=== PATIENT | female | born 1980 | race Caucasian/White ===

== ENCOUNTER 2025-03-13 16:01 | Inpatient (IN) | payer OTHER, SELFPAY ==
--- OUTSIDE RECORDS SUMMARY | 2025-03-12 22:16 | XMS_ITS | Encounter Summary ---
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 should not be used for non-medical purposes. *ALTERNATE METHOD CONFIRMATION DONE UPON REQUEST ONLY* Urine Urine specimen obtained by clean catch procedure / Unknown Non-blood Collection / Unknown 03/12/2025 11:09 PM EDT 03/12/2025 11:45 PM EDT us Ray Ramirez MD LAB URINE ORDERABLES Final Result Performing Organization Address City/[facility]/ZIP Co de Phone Number [facility] [address] [place] [address], [place] [phone] * Phencyclidine, urine (03/12/2025 11:09 PM EDT) PCP Scrn, Ur Negative Negative LAB CHEMISTRY METHOD 03/13/2025 12:[address] [facility] Comment: Assay cutoff 25 ng/mL Semi-quantitative assay for screening purposes only. Unconfirmed screening result should not be used for non-medical purposes. *ALTERNATE METHOD CONFIRMATION DONE UPON REQUEST ONLY* Urine Urine specimen obtained by clean catch procedure / Unknown Non-blood Collection / Unknown 03/12/2025 11:09 PM EDT 03/12/2025 11:45 PM EDT Ray Ramirez MD LAB URINE ORDERABLES Final Result Performing Organization Address [facility] Co de Phone Number [facility] [address] [place] [address], * Buprenorphine screen, urine (03/12/2025 11:09 PM EDT) Buprenorphine Screen Urine Negative Negative LAB CHEMISTRY METHOD 03/13/2025 12:[address] [facility] Urine Urine specimen obtained by clean catch procedure / Unknown Non-blood Collection / Unknown 03/12/2025 11:09 PM EDT 03/12/2025 11:[address] [facility] - 03/13/2025 12:38 AM EDT Assay cutoff 5 ng/mL Semi-quantitative assay for screening purposes only. Unconfirmed screening result should not be used for non-medical purposes. *ALTERNATE METHOD CONFIRMATION DONE UPON REQUEST ONLY* Ray Ramirez MD LAB URINE ORDERABLES Final Result Performing Organization Address [facility] de Phone Number [facility] [address] [place] [address], * (ABNORMAL) Drug abuse screen 8a panel, urine (03/12/2025 11:09 PM EDT) Amphetamine Screen, Ur Negative Negative LAB CHEMISTRY METHOD 12:[address] [facility] Comment:Certain OTC medicati ons containing ephedrine, phenylephrine, pseudoephedrine and phenylpropanolamine can cause false positive results. Barbiturate Screen, Ur Negative Negative LAB CHEMISTRY METHOD 12:[address] [facility] Benzodiazepine Screen, Ur Positive(A ) Negative LAB CHEMISTRY METHOD 5 12:[address] [facility] Cocaine Screen, Ur Negative Negative LAB CHEMISTRY METHOD 5 12:38 AM [facility] Opiate Screen, Ur Negative Negative LAB CHEMISTRY METHOD 5 12:38 AM [facility] Cannabinoid (THC) Screen, Ur Positive(A ) Negative LAB CHEMISTRY METHOD 5 12:[address] [facility] Comment:Specimens from patie nts taking pantoprazole sodium (Protonix) have been shown to produce false positive results. Oxycodone Screen, Ur Negative Negative LAB CHEMISTRY METHOD 5 12:38 AM [facility] Fentanyl, Ur Negative Negative LAB CHEMISTRY METHOD 5 12:38 AM [facility] Urine Urine specimen obtained by clean catch procedure / Unknown Non-blood Collection / Unknown 03/12/2025 11:09 PM EDT 03/12/2025 11:[address] [facility] - 03/13/2025 12:38 AM EDT Assay cutoffs: Amphetamines 1000 ng/mL Barbiturates 200 ng/mL Benzodiazepines 200 ng/mL Cocaine 300 ng/mL Fentanyl 1 ng/mL Opiates 300 ng/mL Oxycodone 100 ng/mL THC 50 ng/mL Semi-quantitative assay for screening purposes only. Unconfirmed screening result should not be used for non-medical purposes. *ALTERNATE METHOD CONFIRMATION DONE UPON REQUEST ONLY* us Ray Ramirez MD LAB URINE ORDERABLES Final Result [facility] [address] [place] [address], documented in this encounter Visit Diagnoses Not on filedocumented in this encounter Administered Medications Inactive Administered Medications - up to 3 most recent administrations Medication Order MAR Action Action Date Dose Rate Site sodium chloride 0.9 % bolus 1,000 mL 1,000 mL, intravenous, at 1,000 mL/hr, Administer over 1 Hours, Once, On Tue03/12/25 at 2324, For 1 dose New Bag 03/12/2025 11:45 PM EDT 1,000 mL 1000 mL/hr documented in this encounter Historical Medications * This list may reflect changes made after this encounter. sertraline (ZOLOFT) 100 mg tablet Take 1 tablet (100 mg total) by mouth 2 (two) times a day. 08/15/2009 LORazepam (ATIVAN) 0.5 mg tablet Take 1 tablet (0.5 mg total) by mouth 1 (one) time each day if needed for anxiety. Max Daily Amount: 0.5 mg melatonin 3 mg tablet Take 1 tablet (3 mg total) by mouth at bedtime. 11/01/2024 SUMAtriptan (IMITREX) 25 mg tablet Take 1 tablet (25 mg total) by mouth 1 (one) time if needed for migraine. 01/23/2025 buPROPion XL (WELLBUTRIN XL) 300 mg 24 hr tablet Take 1 tablet (300 mg total) by mouth 1 (one) time each day. 02/16/2023 added in this encounter Active and Recently Administered Medications Times are shown in EDT. Scheduled Medication Order 03/11/2025 03/12/2025 03/13/2025 buPROPion XL (WELLBUTRIN XL) 24 hr tablet 300 mg 300 mg, oral, Daily, First dose on Tue03/13/25 at 1518, Do not crush, chew, or split. 1530 (Not Given - Provider: Stephenie Guadarrama RN - Reason: Other - Comment: pt transferred at this time) melatonin tablet 3 mg 3 mg, oral, Nightly, First dose on Tue03/13/25 at 2100 2100 (Due) sertraline (ZOLOFT) tablet 100 mg 100 mg, oral, Daily, First dose on Tue03/13/25 at 1518 1530 (Not Given - Provider: Stephenie Guadarrama RN - Reason: Other - Comment: pt transferred at this time) sodium chloride 0.9 % bolus 1,000 mL (COMPLETED) 1,000 mL, intravenous, at 1,000 mL/hr, Administer over 1 Hours, Once, On Tue03/12/25 at 2324, For 1 dose 2345 (New Bag - Provider: Lamine Lee, RN) 0039 (Stopped - Provider: Lamine Lee, KARLA) documented in this encounter Orders Medications Ordered That Oliverio ht Not Have Been Administered Count Last Ordered Date First Ordered Date buPROPion XL (WELLBUTRIN XL) 24 hr tablet 300 mg 1 03/13/2025 melatonin tablet 3 mg 1 03/13/2025 sertraline (ZOLOFT) tablet 100 mg 1 025 sodium chloride 0.9 % bolus 1,000 mL 1 02/19 Diet Count Last Ordered Date First Orde red Date ADULT DIET 1 03/13/2025 Nursing Count Last Ordered Date First Orde red Date VITAL SIGNS 1 03/13/2025 Consult Count Last Ordered Date First Orde red Date IP CONSULT TO CURRICULUM WRITER 1 03/13/2025 Precaution Count Last Ordered Date First Orde red Date SUICIDE PRECAUTIONS 1 03/12/2025 Privilege Level Count Last Ordered Date First O rdered Date PATIENT BARK FITTER 1 03/12/2025 documented in this encounter Care Teams Law Clerk Relationship Specialty Start Date End Date Neelam Duran NP [facility] [address] [place] [address] PCP - General Nurse Practitioner 03/12/25 documented as of this encounter
[2025-03-13 16:45] VITALS: BP 138/72; PULSE 101; RESP 18; TEMP 36.6; O2SAT 98
[2025-03-13 17:54] VITALS: BMI 31.5
--- OUTSIDE RECORDS SUMMARY | 2025-03-13 18:02 | XMS_ITS | Encounter Summary ---
Author Organization [facility] Address [address] [place] [address] Phone Care Team Providers Care Bead Machine Operator Name Role Phone Neelam Duran NP Primary Care Provider + Encounter Details Date Type Department Care Team (Late st Contact Info) Description 03/19/2023 Procedure Pass [facility], [facility] [address] [facility] [place] [address] Social History Tobacco Use Types Packs/Day Years Used Date Smoking Tobacco: Former Smokeless Tobacco: Never Alcohol Use Standard Drinks/Week Comments Not Currently 0 (1 standard drink = 0.6 oz pur e alcohol) Education Answer Date Recorded Are you interested in more education? Not on lyly e 10/15/2022 Are you concerned about learning? Not on file 10/15/2022 No 10/15/2022 No 10/15/2022 Digital Access Answer Date Recorded No 11/12/2022 No 11/12/2022 Reliable internet access at home? Not on file 11/12/2022 Device with a working camera? Not on file Comments No Sex and Gender Information Value Date Recorded Sex Assigned at Not on file Legal Sex Female 9:23 PM EDT Gender Identity Not on file Sexual Orientation Not on file documented as of this encounter Plan of Treatment Not on file documented as of this encounter Visit Diagnoses Not on filedocumented in this encounter Care Teams Bead Machine Operator Relationship Specialty Start Date End Date Neelam Duran NP [address] [place] [address] PCP - General Nurse Practitioner 03/09/23 documented as of this encounter Additional Source Comments The information contained in this document represents components of the legal health record. It is not the complete legal health record.[facility]
--- OUTSIDE RECORDS SUMMARY | 2025-03-13 18:02 | XMS_ITS | Encounter Summary ---
Author Organization [facility] Address [address] [facility] [address] [place] [phone] Phone Care Team Providers Care Food Runner Name Role Phone Neelam Duran NP Primary Care Provider + Encounter Details Date Type Department Care Team (Late st Contact Info) Description 03/09/2023 Procedure Pass [facility], [facility] [address] [place] [address] Social History Tobacco Use Types Packs/Day Years Used Date Smoking Tobacco: Former Smokeless Tobacco: Never Education Answer Date Recorded Are you interested [...] on file documented as of this encounter Functional Status * Calculated C-SSRS Risk Score (Lifetime/Recent) Answer Date of Assessment Author No Risk Indicated 03/11/2023 4:51 PM RUBENT Violet Figueredo RN * [place] Suicide Severity Rating Scale (Screener/Recent Self-Report) Question Answer Date of Assessment Author 1. Wish to be (Past 1 Month) No 023 4:51 PM Deidra Ramsey RN 2. Non-Specific Active Suici lc Thoughts (Past 1 Month) No 03/11/2023 4:51 PM EDT Imelda Figueredo RN 6. Suicidal Behavior (Lifetime) No 4:51 PM EDT Deidra Figueredo, RN documented as of this encounter Plan of Treatment Not on file documented as of this encounter Visit Diagnoses Not on filedocumented in this encounter Care Teams Food Runner Relationship Specialty Start Date End Date [facility] [place] [address] PCP - General Nurse Practitioner 03/09/23 documented as of this encounter Additional Source Comments The information contained in this document represents components of the legal health record. It is not the complete legal health record.[facility]
--- OUTSIDE RECORDS SUMMARY | 2025-03-13 18:02 | XMS_ITS | Encounter Summary ---
Author Organization [facility] Address [address] [facility] [address] [place] [phone] Phone Care Team Providers Care Flag Signalman Name Role Phone Neelam Duran NP Primary Care Provider + Encounter Details Date Type Department Care Team (Late st Contact Info) Description 08/05/2023 Procedure Pass [facility] - [facility], [facility] [address] [place] [address] Social History Tobacco Use Types Packs/Day Years [...] with a working camera? Not on file Intimate Partner Violence Answer Date R ecorded Are you denied basic needs s uch as food, clothing, or medical care? No 08/05/2023 In the past 12 months have y ou been in a relationship with a person who hurts, threatens, or tries to control you? No 08/05/2023 Are you denied basic needs s uch as food, clothing, or medical care? No 08/05/2023 In the past 12 months have y ou been in a relationship with a person who hurts, threatens, or tries to control you? No 08/05/2023 Comments No Sex and Gender Information Value Date Recorded Sex Assigned at Not on file Legal Sex Female 9:23 PM EDT Gender Identity Not on file Sexual Orientation Not on file documented as of this encounter Functional Status * Calculated C-SSRS Risk Score (Lifetime/Recent) Answer Date of Assessment Author No Risk Indicated 08/05/2023 8:[address] Sandoval RN * [place] Suicide Severity Rating Scale (Screener/Recent Self-Report) Question Answer Date of Assessment Author 1. Wish to be (Past 1 Month) No 08/05/2023 8:[address] Sandoval am, RN 2. Non-Specific Active Suici lc Thoughts (Past 1 Month) No 08/05/2023 8:[address] Sandoval RN 6. Suicidal Behavior (Lifetime) No 8:[address] Sandoval RN documented as of this encounter Plan of Treatment Not on file documented as of this encounter Visit Diagnoses Not on filedocumented in this encounter Care Teams Flag Signalman Relationship Specialty Start Date End Date Neelam Duran NP [address] [place] [address] PCP - General Nurse Practitioner 03/09/23 documented as of this encounter Additional Source Comments The information contained in this document represents components of the legal health record. It is not the complete legal health record.[facility]
--- OUTSIDE RECORDS SUMMARY | 2025-03-13 18:02 | XMS_ITS | Clinical Summary ---
Author Organization [facility] Address [address] [place] [address] Care Team Providers Care Stylist Apprentice Name Role Phone Jitendra Hernandez MD PhD Primary Care Provid er Allergies Active Allergy Reactions Criticality Noted Date Comments Shellfish 04/13/2023 Medications Medication Sig Dispensed Refills Start Date End Date Status buPROPion (WELLBUTRIN XL) 300 MG 24 hr tablet Take 1 tablet (300 mg total) by mouth every morning. 0 02/16/2023 Active LORazepam (ATIVAN) 0.5 MG tablet TAKE 1 TABLET BY MOUTH EVERY DAY NEEDED. MAY TAKE ADDITIONAL TABLET FOR SEVERE ANXIETY AND / OR BEFORE MEDICAL PROCEDURES 0 05/26/2021 Active sertraline (ZOLOFT) 100 MG tablet Take 1.5 tablets (150 mg total) by mouth. 0 09/16/2009 Active vitamin D3 25 MCG (1000 UT) tablet Take by mouth daily. 0 08/06/2023 Active pantoprazole (PROTONIX) 40 MG tablet 0 08/06/2023 Active Social History Tobacco Use Types Packs/Day Years Used Date Smoking Tobacco: Never Smokeless Tobacco: Never Tobacco Cessation:Counseling Given: Not Answered Alcohol Use Standard Drinks/Week Comments Never 0 (1 standard drink = 0.6 oz pur e alcohol) Sex and Gender Information Value Date Recorded Sex Assigned at Female 04/08/2023 4:12 PM EDT Gender Identity Not on file Sexual Orientation Not on file Job Start Date Occupation Industry Not on file Not on file Not on file Last Filed Vital Signs Vital Sign Reading Time Taken Comments Blood Pressure 125/83 08/29/2023 2:29 PM EDT Pulse 79 08/29/2023 2:29 PM EDT Temperature 36.7 C (98 F) 08/29/2023 2:29 PM EDT Respiratory Rate - - Oxygen Saturation 97% 08/29/2023 2:29 PM EDT Inhaled Oxygen Concentration - - Weight 77 kg (169 lb 12.8 oz) 08/29/2023 2:29 PM EDT Height 157.5 cm (5' 2 ) 08/29/2023 2:29 PM EDT Body Mass Index 31.06 08/29/2023 2:29 PM EDT Plan of Treatment Health Maintenance Due Date Last Done Comments Hepatitis B Vaccines (1 of 3 - 3-dose series) 1979 Hepatitis C Screening 1979 Depression Screening 1991 BMI Counseling 1997 Preventative Health Evaluation 1997 Cervical Cancer Screening (Pap Smear) 2000 DTap / Tdap / Td (1 - Tdap) 06/21/2005 06/20/2005 Colon Cancer Screening (Colonoscopy) 2024 COVID-19 Vaccine (3 - 2024-2 6 season) 2025 01/19/2021, 12/29/2020 Influenza Vaccine (#1) 2025 Pneumococcal Vaccine Aged Out No long er eligible based on patient's age to complete this topic RSV Ped < 20 months Aged Out No longe r eligible based on patient's age to complete this topic Insurance Payer Benefit Plan / Group Subscriber ID Effective Dates Phone Address [facility] [id number] 2023-Prese nt [address] [place] [phone] O Care Teams Stylist Apprentice Relationship Specialty Start Date End Date Jitendra Hernandez MD PhD [address] [phone] PCP - General Neurology 03/31/23
--- OUTSIDE RECORDS SUMMARY | 2025-03-13 18:02 | XMS_ITS | Clinical Summary ---
Author Organization [facility] Address [address] [place] [address] Phone Care Team Providers Care Guest Specialist Name Role Phone Renee Neelam MARLO Primary Care Provider [phone] Allergies No known active allergies Medications buPROPion XL (WELLBUTRIN XL) 300 mg 24 hr tablet Take 1 tablet (300 mg total) by mouth 1 (one) time each day. 02/16/2023 Active SUMAtriptan (IMITREX) 25 mg tablet Take 1 tablet (25 mg total) by mouth 1 (one) time if needed for migraine. 01/23/2025 Active melatonin 3 mg tablet Take 1 tablet (3 mg total) by mouth at bedtime. 11/01/2024 Active LORazepam (ATIVAN) 0.5 mg tablet Take 1 tablet (0.5 mg total) by mouth 1 (one) time each day if needed for anxiety. Max Daily Amount: 0.5 mg Active sertraline (ZOLOFT) 100 mg tablet Take 1 tablet (100 mg total) by mouth 2 (two) times a day. 08/15/2009 Active Encounters Date Type Department Care Team Description 03/12/2025 10:16 PM EDT - 03/13/2025 3:43 PM EDT Emergency [facility] Emergency [address] [place] [address] Ray Ramirez MD Touriel, Ross, MD [facility] Last 3 Months Immunizations Name Administration Dates Next Due Pfizer SARS-CoV-2 COVID-19, mRNA, LNP-S, preservative free 01/19/2021,12/29/2020 Surgical History Surgery Date Site/Laterality Comments SECTION PROCEDURE: SECTION CHOLECYSTECTOMY PROCEDURE:CHOLECYSTECTOMY OPEN NASAL SEPTUM SURGERY PROCEDURE:NASAL SEPTUM SURGERY TONSILLECTOMY PROCEDURE:TONSILLECTOMY Social History Tobacco Use Types Packs/Day Years Used Date Smoking Tobacco: Never Smokeless Tobacco: Never Alcohol Use Standard Drinks/Week Comments Never 0 (1 standard drink = 0.6 oz pur e alcohol) Comments Unknown Sex and Gender Information Value Date Recorded Sex Assigned at Not on file Legal Sex Female 2:18 PM EST Gender Identity Not on file Sexual Orientation Not on file Obstetrics History Last Filed Vital Signs Vital Sign Reading [...] Mass Index 32.92 03/12/2025 10:49 PM EDT Plan of Treatment Health Maintenance Due Date Last Done Comments Breast Cancer Screening 1979 Hepatitis B Vaccines (1 of 3 - 19+ 3-dose series) 1998 Cervical Cancer Screening: P ap Smear 2000 DTaP,Tdap,and Td Vaccines (2 - Td or Tdap) 06/20/2015 06/20/2005 Colorectal Cancer Screening: Colonoscopy 07/19/2023 HIV Screening 07/19/2023 Hepatitis C Screening 07/19/2023 Social Influencers of Health Screening 07/19/2023 Depression Screening 06/20/2024 COVID-19 Vaccine (3 - 2024-2 6 season) 2025 01/19/2021, 12/29/2020 Influenza Vaccine (#1) 2025 RSV Immunization Adult Patients (1 - 1-dose 75+ series) 2054 HIB Vaccines Aged Out No longer eligi ble based on patient's age to complete this topic HPV Vaccines Aged Out No longer eligi ble based on patient's age to complete this topic Hepatitis A Vaccines Aged Out No long er eligible based on patient's age to complete this topic IPV Vaccines Aged Out No longer eligi ble based on patient's age to complete this topic MMR Vaccines Aged Out No longer eligi ble based on patient's age to complete this topic Meningococcal ACWY Vaccine Aged Out N o longer eligible based on patient's age to complete this topic Meningococcal B Vaccine Aged Out No l onger eligible based on patient's age to complete this topic Pneumococcal Vaccine: Pediatrics (0 to 5 Years) and At-Risk Patients (6 to 49 Years) Aged Out No longer eligible b ased on patient's age to complete this topic RSV Immunization Patients Under 20 months Aged Out No longer eligible b ased on patient's age to complete this topic Varicella Vaccines Aged Out No longer eligible based on patient's age to complete this topic Procedures Procedure Name Priority Date/Time Associated Diagnosis Comments CBC WITH AUTO DIFFERENTIAL STAT 03/12/2025 11:41 PM EDT SALICYLATE LEVEL STAT 03/12/2025 11:4 1 PM EDT ACETAMINOPHEN LEVEL STAT 03/12/2025 1 1:41 PM EDT ETHANOL STAT 03/12/2025 11:41 PM EDT COMPREHENSIVE METABOLIC PANEL STAT 03/12/2025 11:41 PM EDT CBC AND DIFFERENTIAL STAT 03/12/2025 11:41 PM EDT POC , URINE DIAGNOSTIC STAT 03/12/2025 11:15 PM EDT METHADONE SCREEN, URINE STAT 03/12/2025 11:09 PM EDT PHENCYCLIDINE, URINE STAT 03/12/2025 11:09 PM EDT BUPRENORPHINE SCREEN, URINE STAT 03/12/2025 11:09 PM EDT DRUG ABUSE SCREEN 8A PANEL, URINE STAT 03/12/2025 11:09 PM EDT ECG 12-LEAD STAT 03/12/2025 10:58 PM EDT from Last 3 Months Results * CBC auto differential (03/12/2025 11:41 PM EDT) [facility] WBC 9.7 4.8 - 10.8 K/mcL LAB HEMETOLOGY METHOD 03/12/2025 11:51 PM EDT [facility] RBC 4.10 3.80 - 4.80 M/mcL LAB HEMETOLOGY METHOD 03/12/2025 11:51 PM EDT [facility] Hemoglobin 12.8 11.5 - 16.0 g/dL LAB HEMETOLOGY METHOD 03/12/2025 11:51 PM EDT [facility] Hematocrit 37.9 35.0 - 47.0 % LAB HEMETOLOGY METHOD 03/12/2025 11:51 PM EDT [facility] MCV 91.8 79.0 - 98.0 FL LAB HEMETOLOGY METHOD 03/12/2025 11:51 PM EDT [facility] MCH 31.0 27.0 - 32.0 pcg LAB HEMETOLOGY METHOD 03/12/2025 11:51 PM EDT [facility] MCHC 33.8 32.0 - 37.0 g/dL LAB HEMETOLOGY METHOD 03/12/2025 11:51 PM EDT [facility] RDW 11.6 11.0 - 15.0 % LAB HEMETOLOGY METHOD 03/12/2025 11:51 PM EDT [facility] Platelets 357 130 - 400 K/mcL LAB HEMETOLOGY METHOD 03/12/2025 11:51 PM EDT [facility] MPV 8.8 7.0 - 11.0 FL LAB HEMETOLOGY METHOD 03/12/2025 11:51 PM EDT [facility] NRBC 0.0 <1.0 % LAB HEMETOLOGY METHOD 03/12/2025 11:[address] [facility] NRBC Absolute 0.00 <0.10 K/mcL LAB HEMETOLOGY METHOD 03/12/2025 11:[address] [facility] Neutrophils Relative 61.0 % LAB HEMETOLOGY METHOD 03/12/2025 11:[address] [facility] Lymphocytes Relative 30.2 % LAB HEMETOLOGY METHOD 03/12/2025 11:[address] [facility] Monocytes Relative 7.0 % LAB HEMETOLOGY METHOD 03/12/2025 11:[address] [facility] Eosinophils Relative 1.0 % LAB HEMETOLOGY METHOD 03/12/2025 11:[address] [facility] Basophils Relative 0.6 % LAB HEMETOLOGY METHOD 03/12/2025 11:[address] [facility] Immature Granulocytes Relative 0.2 % LAB HEMETOLOGY METHOD 03/12/2025 11:[address] [facility] Neutrophils Absolute 5.89 1.50 - 7.00 K/mcL LAB HEMETOLOGY METHOD 03/12/2025 11:[address] [facility] Lymphocytes Absolute 2.92 1.00 - 5.00 K/mcL LAB HEMETOLOGY METHOD 03/12/2025 11:[address] [facility] Monocytes Absolute 0.68 0.20 - 1.00 K/mcL LAB HEMETOLOGY METHOD 03/12/2025 11:[address] [facility] Eosinophils Absolute 0.10 0.00 - 0.50 K/mcL LAB HEMETOLOGY METHOD 03/12/2025 11:[address] [facility] Basophils Absolute 0.06 0.00 - 0.20 K/mcL LAB HEMETOLOGY METHOD 03/12/2025 11:[address] [facility] Immature Granulocytes Absolute 0.02 0.00 - 0.03 K/mcL LAB HEMETOLOGY METHOD 03/12/2025 11:51 PM EDT [facility] Blood Venous blood specimen / Unknown Venipuncture / Unknown 03/12/2025 11:41 PM EDT 03/12/2025 11:45 PM EDT us Ray Ramirez MD LAB BLOOD ORDERABLES Final Result Performing Organization Address [facility]/ZIP Co de Phone Number [facility] [address] [place] [address], [place] [phone] * Ethanol (03/12/2025 11:41 PM EDT) Ethanol Level 5 0 - 10 mg/dL LAB CHEMISTRY METHOD 03/13/2025 12:31 AM EDT [facility] Blood Venous blood specimen / Unknown Venipuncture / Unknown 03/12/2025 11:41 PM EDT 03/12/2025 11:45 PM EDT us Ray Ramirez MD LAB BLOOD ORDERABLES Final Result Performing Organization Address [facility] Co de Phone Number [facility] [address] [place] [address], [place] [phone] * (ABNORMAL) Acetaminophen level (03/12/2025 11:41 PM EDT) Acetaminophen Level <2.0(L) 10.0 - 30.0 mcg/mL LAB CHEMISTRY METHOD 03/13/2025 12:31 AM EDT [facility] Blood Venous blood specimen / Unknown Venipuncture / Unknown 03/12/2025 11:41 PM EDT 03/12/2025 11:45 PM EDT us Ray Ramirez MD LAB BLOOD ORDERABLES Final Result Performing Organization Address City/[facility]/ZIP Co de Phone Number [facility] [address] [place] [address], [place] [phone] * (ABNORMAL) Salicylate level (03/12/2025 11:41 PM EDT) Salicylate Level <1.7(L) 2.0 - 29.0 mg/dL LAB CHEMISTRY METHOD 03/13/2025 12:31 AM T [facility] Blood Venous blood specimen / Unknown Venipuncture / Unknown 03/12/2025 11:41 PM EDT 03/12/2025 11:45 PM EDT Ray Ramirez MD LAB BLOOD ORDERABLES Final Result Performing Organization Address [facility]/ZIP Co de Phone Number [facility] [address] [place] [address], * (ABNORMAL) Comprehensive metabolic panel (03/12/2025 11:41 PM EDT) Pathologist [facility] Sodium 135 133 - 145 mmol/L LAB CHEMISTRY METHOD 03/13/2025 12:[address] [facility] Potassium 3.9 3.5 - 5.5 mmol/L LAB CHEMISTRY METHOD 03/13/2025 12:[address] [facility] Comment:Hemolysis present Chloride 104 96 - 110 mmol/L LAB CHEMISTRY METHOD 03/13/2025 12:[address] [facility] CO2 26 21 - 32 mmol/L LAB CHEMISTRY METHOD 03/13/2025 12:[address] [facility] Anion Gap 5 3 - 11 LAB CHEMISTRY METHOD 03/13/2025 12:[address] [facility] Glucose 106(H) 70 - 100 mg/dL LAB CHEMISTRY METHOD 03/13/2025 12:[address] [facility] BUN 13 5 - 25 mg/dL LAB CHEMISTRY METHOD 03/13/2025 12:[address] [facility] Creatinine 0.74 0.50 - 1.10 mg/dL LAB CHEMISTRY METHOD 03/13/2025 12:[address] [facility] eGFR 102 >=60 mL/min/1. 73m2 LAB CHEMISTRY METHOD 03/13/2025 12:[address] [facility] Comment:Calculation based on the Chronic Kidney Disease Epidemiology Collaboration (CKD-EPI) equation refit without adjustment for race. BUN/Creatinine Ratio 17.6 LAB CHEMISTRY METHOD 03/13/2025 12:[address] [facility] Calcium 9.6 8.5 - 10.5 mg/dL LAB CHEMISTRY METHOD 03/13/2025 12:[address] [facility] AST (SGOT) 28 10 - 42 unit/L LAB CHEMISTRY METHOD 03/13/2025 12:[address] [facility] Comment:Hemolysis present ALT (SGPT) 31 10 - 60 unit/L LAB CHEMISTRY METHOD 03/13/2025 12:[address] [facility] Alkaline Phosphatase 93 42 - 121 unit/L LAB CHEMISTRY METHOD 03/13/2025 12:[address] [facility] Total Protein 6.7 6.0 - 8.0 g/dL LAB CHEMISTRY METHOD 03/13/2025 12:[address] [facility] Albumin 3.9 3.2 - 5.0 g/dL LAB CHEMISTRY METHOD 03/13/2025 12:[address] [facility] Total Bilirubin 0.2 0.0 - 1.4 mg/dL LAB CHEMISTRY METHOD 03/13/2025 12:[address] [facility] Blood Venous blood specimen / Unknown Venipuncture / Unknown 03/12/2025 11:41 PM EDT 03/12/2025 11:45 PM EDT Ray Ramirez MD LAB BLOOD ORDERABLES Final Result [facility] [address] [place] [address], [place] [phone] * POC , urine manually resulted (03/12/2025 11:15 PM EDT) Pathologist [facility] HCG, Ur POC Negative Negative Urine Urine specimen obtained by clean catch procedure / Unknown 03/12/2025 11:15 PM EDT Ray Ramirez MD POINT OF CARE TEST ENTER/E DIT ORDERABLES Final Result * (ABNORMAL) Drug abuse screen 8a panel, urine (03/12/2025 11:09 PM EDT) [facility] Amphetamine Screen, Ur Negative Negative LAB CHEMISTRY METHOD 5 12:[address] [facility] Comment:Certain OTC medicati ons containing ephedrine, phenylephrine, pseudoephedrine and phenylpropanolamine can cause false positive results. Barbiturate Screen, Ur Negative Negative LAB CHEMISTRY METHOD 5 12:[address] [facility] Benzodiazepine Screen, Ur Positive(A ) Negative LAB CHEMISTRY METHOD 5 12:[address] [facility] Cocaine Screen, Ur Negative Negative LAB CHEMISTRY METHOD 5 12:[address] [facility] Opiate Screen, Ur Negative Negative LAB CHEMISTRY METHOD 5 12:[address] [facility] Cannabinoid (THC) Screen, Ur Positive(A ) Negative LAB CHEMISTRY METHOD 5 12:[address] [facility] Comment:Specimens from patie nts taking pantoprazole sodium (Protonix) have been shown to produce false positive results. Oxycodone Screen, Ur Negative Negative LAB CHEMISTRY METHOD 5 12:[address] [facility] Fentanyl, Ur Negative Negative [facility] Urine Urine specimen obtained by clean catch procedure / Unknown Non-blood Collection / Unknown 03/12/2025 11:09 PM EDT 03/12/2025 11:45 PM EDT [facility] - 03/13/2025 12:38 AM EDT Assay [...] URINE ORDERABLES Final Result Performing Organization Address [facility] Co de Phone Number [facility] [address] [place] [address], * Buprenorphine screen, urine (03/12/2025 11:09 PM EDT) [facility] Buprenorphine Screen Urine Negative Negative LAB CHEMISTRY METHOD 03/13/2025 12:38 AM EDT [facility] Urine Urine specimen obtained by clean catch procedure / Unknown Non-blood Collection / Unknown 03/12/2025 11:09 PM EDT 03/12/2025 11:45 PM EDT [facility] - 03/13/2025 12:38 AM EDT Assay cutoff 5 ng/mL Semi-quantitative assay for screening purposes only. Unconfirmed screening result should not be used for non-medical purposes. *ALTERNATE METHOD CONFIRMATION DONE UPON REQUEST ONLY* us Ray Ramirez MD LAB URINE ORDERABLES Final Result Performing Organization Address [facility]/ZIP Co de Phone Number [facility] [address] [place] [address], [place] [phone] * Methadone, urine (03/12/2025 11:09 PM EDT) Methadone Screen, Urine Negative Negative LAB CHEMISTRY METHOD 03/13/2025 12:38 AM EDT [facility] Comment: Assay cutoff 300 ng/mL Semi-quantitative assay for screening purposes only. Unconfirmed screening result should not be used for non-medical purposes. *ALTERNATE METHOD CONFIRMATION DONE UPON REQUEST ONLY* Urine Urine specimen obtained by clean catch procedure / Unknown Non-blood Collection / Unknown 03/12/2025 11:09 PM EDT 03/12/2025 11:45 PM EDT Ray Ramirez MD LAB URINE ORDERABLES Final Result Performing Organization Address [facility]/ZIP Co de Phone Number [facility] [address] [place] [address], [place] [phone] * Phencyclidine, urine (03/12/2025 11:09 PM EDT) PCP Scrn, Ur Negative Negative LAB CHEMISTRY METHOD 03/13/2025 12:38 AM EDT [facility] Comment: Assay cutoff 25 ng/mL Semi-quantitative assay for screening purposes only. Unconfirmed screening result should not be used for non-medical purposes. *ALTERNATE METHOD CONFIRMATION DONE UPON REQUEST ONLY* Urine Urine specimen obtained by clean catch procedure / Unknown Non-blood Collection / Unknown 03/12/2025 11:09 PM EDT 03/12/2025 11:45 PM EDT Ray Ramirez MD LAB URINE ORDERABLES Final Result Performing Organization Address City/[facility]/ZIP Co de Phone Number [facility] [address] [place] [address], from Last 3 Months Insurance Care Teams Guest Specialist Relationship Specialty Start Date End Date Neelam Duran NP [address] [address] PCP - General Nurse Practitioner 03/12/25
--- OUTSIDE RECORDS SUMMARY | 2025-03-13 18:02 | XMS_ITS | Encounter Summary ---
Author Organization [facility] Address [address] [facility] [address] [place] [address] Phone Care Team Providers Care Piano Regulator Name Role Phone Neelam Duran NP Primary Care Provider + Encounter Details Date Type Department Care Team (Late st Contact Info) Description 03/21/2023 Procedure Pass [facility] Imaging - Peripoerative Interventional Radiology [address] [place] [address], [address] [place] [address] Social History Tobacco Use Types Packs/Day Years [...] on filedocumented in this encounter Care Teams Piano Regulator Relationship Specialty Start Date End Date Neelam Duran NP [address], [place] [phone] PCP - General Nurse Practitioner 03/09/23 documented as of this encounter Additional Source Comments The information contained in this document represents components of the legal health record. It is not the complete legal health record.[facility]
--- OUTSIDE RECORDS SUMMARY | 2025-03-13 18:02 | XMS_ITS | Encounter Summary ---
Author Organization [facility] Address [address] [facility] [address] [place] [address] Phone Care Team Providers Care Box Machine Operator Name Role Phone Neelam Duran NP Primary Care Provider + Encounter Details Date Type Department Care Team (Late st Contact Info) Description 03/22/2023 Procedure Pass [facility] [address] [place] [phone] Social History Tobacco Use Types Packs/Day Years [...] on filedocumented in this encounter Care Teams Box Machine Operator Relationship Specialty Start Date End Date Neelam Duran NP [address] [place] [address] PCP - General Nurse Practitioner 03/09/23 documented as of this encounter Additional Source Comments The information contained in this document represents components of the legal health record. It is not the complete legal health record.[facility]
--- OUTSIDE RECORDS SUMMARY | 2025-03-13 18:02 | XMS_ITS | Clinical Summary ---
Author Organization [facility] Address [address] [facility] [address] [place] [address] Phone Care Team Providers Care Insurance Rater Name Role Phone Neelam Duran NP Primary Care Provider + Allergies Active Allergy Reactions Criticality Noted Date Comments Shellfish Containing Products Anaphylaxis High 03/09 Medications buPROPion (WELLBUTRIN XL) 300 MG ER 24 hr tablet Take 300 mg by mouth every morning. 3 Active sertraline (ZOLOFT) 100 MG tablet Take 1.5 tablets by mouth every morning. 3 Active LORazepam (ATIVAN) 0.5 MG tablet TAKE 1 TABLET BY MOUTH EVERY DAY NEEDED. MAY TAKE ADDITIONAL TABLET FOR SEVERE ANXIETY AND / OR BEFORE MEDICAL PROCEDURES 3 Active meloxicam (MOBIC) 7.5 MG tablet Take 7.5 mg by mouth nightly at bedtime. Active Active Problems Problem Noted Date Diagnosed Date Vision changes 03/18/2023 Immunizations No known immunizations Family History Medical History Relation Comments Lung cancer Father COPD Mother Relation Status Comments Father Mother Social History Tobacco Use Types Packs/Day Years Used Date Smoking Tobacco: Former Smokeless Tobacco: Never Tobacco Cessation:Counseling Given: Not Answered Alcohol Use Standard Drinks/Week Comments Not Currently [...] on file Sexual Orientation Not on file Last Filed Vital Signs Vital Sign Reading Time Taken Comments Blood Pressure 142/85 08/05/2023 6:46 PM EST Pulse 88 08/05/2023 6:46 PM EST Temperature 36.8 C (98.3 F) 08/05/2023 8:05 AM EST Respiratory Rate 16 08/05/2023 6:46 PM EST Oxygen Saturation 99% 08/05/2023 6:46 PM EST Inhaled Oxygen Concentration - - Weight 74.4 kg (164 lb) 08/05/2023 8:05 AM EST Height 157.5 cm (5' 2 ) 08/05/2023 8:05 AM EST Body Mass Index 30 08/05/2023 8:05 AM EST Plan of Treatment Health Maintenance Due Date Last Done Comments LIPID PANEL 1979 DEPRESSION SCREENING 1991 SMOKING Hx and SMOKELESS TOBACCO SCREENING 1992 HEPATITIS C SCREENING 1997 PAP SMEAR 2000 Adult Td,Tdap Booster 06/20/2015 06/20/2005 MAMMOGRAM 2019 COLOGUARD 2024 COLONOSCOPY 2024 COLORECTAL CANCER SCREENING 2024 FIT TEST 2024 FOBT 2024 SIGMOIDOSCOPY 2024 VIRTUAL COLONOSCOPY 2024 INFLUENZA VACCINE (#1) 2025 COVID-19 VACCINE (3 - 2024-2 6 season) 2025 01/19/2021, 12/29/2020 SCREENING FOR DIABETES 04/01/2026 04/01/2023 HIV ONE-TIME SCREENING (18-6 5 YEARS) Completed 03/18/2023 HEPATITIS A VACCINES Aged Out No long er eligible based on patient's age to complete this topic HIB VACCINES Aged Out No longer eligi ble based on patient's age to complete this topic MENINGOCOCCAL VACCINES (ACWY) Aged Out No longer eligible based on patient's age to complete this topic MENINGOCOCCAL VACCINES (B) Aged Out N o longer eligible based on patient's age to complete this topic PNEUMOCOCCAL VACCINES (0-49 years) Aged Out No longer eligible b ased on patient's age to complete this topic Medical Devices Implanted Type Area Process Camera Operator Device Identifier Shelf Expiration Date Model / Serial / Lot Kit Catheter Palindrome 14.5fr 16fr 40cm 23cm .038in Symmetrsymmetric Tip Double Lumen Safety Sheath Tissue Dilator Introducer Needle Guidewire Venatrac Insertion Stylet Lf Hemodialysis Pk/5ea - [id number] Implanted:Qty: 1 on 03/22/2023 by Minh Barrera MBBS at [facility] Right: Vein Y'all 07/06/2027 [id number] / / [id number] Description:RIGHT internal j ugular Insurance [facility] [place] [address] [facility] Member Subscriber Plan / Payer (Ef fective 2024-Present) Name:Shanta Pride Relation to Subscriber:Self Name:Shanta Pride Payer ID:Not on file Type:Medicaid Address: [place] [id number] [facility] [place] [place] [address] [facility] ACO [facility]CO [facility] Advance Directives For more information, please contact: [phone] (9AM - 5PM [place], Tuesday-Tuesday) * Full Code (Latest Code Status on File) Date Activated Date Inactivated Comments 03/18/2023 2:45 PM Question Answer Comments Code Status Confirmed With: Patient Care Teams Insurance Rater Relationship Specialty Start Date End Date Neelam Duran NP [address] [place] [address] PCP - General Nurse Practitioner 03/09/23 Additional Source Comments The information contained in this document represents components of the legal health record. It is not the complete legal health record.[facility]
--- OUTSIDE RECORDS SUMMARY | 2025-03-13 18:02 | XMS_ITS | Encounter Summary ---
Author Organization [facility] Address [address] [address] Phone Care Team Providers Care Police Officer Crime Prevention Name Role Phone Unknown, Unknown Primary Care Provider Neelam Juan NP Primary Care Provider + Reason for Referral * MRI/CAT Scan - Closed Specialty Diagnoses / Procedures Referred By Contac t Referred To Contact Procedures MRI Brain Outside (No Interpretation) Darrell Pimentel MD Phone: tel: fax: mailto:[email or web address] Referral ID Status Reason Start Date Expiration Date Visits Re quested Visits Authorized [id number] Closed 09/07/2018 09/07/2019 1 1 Encounter Details Date Type Department Care Team (Late st Contact Info) Description 09/07/2018 Ancillary Orders [facility] [address] [address] Darrell Pimentel MD [address] [place] [id number] [email or web address] Social History Tobacco Use Types Packs/Day Years Used Date Smoking Tobacco: Former Smokeless Tobacco: Never Comments Unknown Sex and Gender Information Value Date Recorded Sex Assigned at Not on file Legal Sex Female 9:23 PM EDT Gender Identity Not on file Sexual Orientation Not on file documented as of this encounter Plan of Treatment Not on file documented as of this encounter Results * MRI Brain Outside (No Interpretation) (07/30/2018 12:00 AM EST) Narrative [facility] INTER[facility]AC[facility] - 09/07/2018 12:03 PM EDT This study is for PACS storage only and not for interpretation. us Darrell Pimentel MD IMG OUTSIDE IMAGING W/OUT IN TERPRETATION Final Result [facility] INTER[facility] documented in this encounter Visit Diagnoses Not on filedocumented in this encounter Care Teams Police Officer Crime Prevention Relationship Specialty Start Date End Date Unknown, Unknown, PCP - General 07/31/18 03/08/23 Neelam Duran NP [address] [place] [address] PCP - General Nurse Practitioner 03/09/23 documented as of this encounter Additional Source Comments The information contained in this document represents components of the legal health record. It is not the complete legal health record.[facility]
--- OUTSIDE RECORDS SUMMARY | 2025-03-13 18:02 | XMS_ITS | Encounter Summary ---
Author Organization [facility] Address 399 [facility] [address] [place] [address] Phone Care Team Providers Care Bin Tripper Operator Name Role Phone Neelam Duran NP Primary Care Provider + Encounter Details Date Type Department Care Team ([facility] st Contact Info) Description 08/05/2023 Ophth Exam [facility] [place] [address] [place] [address] Kailee Salter MD [address] [place] [address] [email or web address] Social History Tobacco Use Types Packs/Day Years [...] No Risk Indicated 08/05/2023 8:[address] Sandoval, KARLA * [place] Suicide Severity Rating Scale (Screener/Recent Self-Report) Question Answer Date of Assessment Author 1. Wish to be (Past 1 Month) No 08/05/2023 8:[address] Sandoval am, RN 2. Non-Specific Active Suici lc Thoughts (Past 1 Month) No 08/05/2023 8:[address] Sandoval RN 6. Suicidal Behavior (Lifetime) No 8:[address] Sandoval, RN documented as of this encounter Plan of Treatment Not on file documented as of this encounter Visit Diagnoses Not on filedocumented in this encounter Care Teams Bin Tripper Operator Relationship Specialty Start Date End Date Neelam Duran NP [address] [place] [address] PCP - General Nurse Practitioner 03/09/23 documented as of this encounter Additional Source Comments The information contained in this document represents components of the legal health record. It is not the complete legal health record.[facility]
--- OUTSIDE RECORDS SUMMARY | 2025-03-13 18:02 | XMS_ITS | Encounter Summary ---
Author Organization [facility] Address 399 [facility] [address] [place] [address] Phone Care Team Providers Care Human Services Manager Name Role Phone Neelam Duran NP Primary Care Provider + Encounter Details Date Type Department Care Team (Late st Contact Info) Description 03/09/2023 Procedure Pass [facility] - MRI, [facility] [address] [place] [address] Social History Tobacco Use Types Packs/Day Years [...] 4:51 PM RUBENT Violet Figueredo RN * [place] Suicide Severity Rating Scale (Screener/Recent Self-Report) Question [...] on filedocumented in this encounter Care Teams Human Services Manager Relationship Specialty Start Date End Date Neelam Duran [place] [address] PCP - General Nurse Practitioner 03/09/23 documented as of this encounter Additional Source Comments The information contained in this document represents components of the legal health record. It is not the complete legal health record.[facility]
--- OUTSIDE RECORDS SUMMARY | 2025-03-13 18:02 | XMS_ITS | Encounter Summary ---
Author Organization [facility] Address [address] [address] Phone Care Team Providers Care Musical Instrument Maker Or Repairer Name Role Phone Unknown, Unknown Primary Care Provider Neelam Juan NP Primary Care Provider + Encounter Details Date Type Department Care Team (Late st Contact Info) Description 09/07/2018 Ancillary Orders [facility] [place] [address] [place] [address] Darrell Pimentel MD [address] [place] [address] [email or web address] Social History Tobacco Use Types Packs/Day [...] on filedocumented in this encounter Care Teams Musical Instrument Maker Or Repairer Relationship Specialty Start Date End Date Unknown, Unknown, PCP - General 07/31/18 03/08/23 Neelam Duran NP [address] [place] [address] PCP - General Nurse Practitioner 03/09/23 documented as of this encounter Additional Source Comments The information contained in this document represents components of the legal health record. It is not the complete legal health record.[facility]
--- OUTSIDE RECORDS SUMMARY | 2025-03-13 18:02 | XMS_ITS | Encounter Summary ---
Author Organization [facility] Address [address] [facility] [address] [place] [address] Phone Care Team Providers Care Rubber Chemist Name Role Phone Neelam Duran NP Primary Care Provider + Encounter Details Date Type Department Care Team (Late st Contact Info) Description 03/19/2023 Procedure Pass [facility], [facility] 2 [address] [facility], [address] [place] [address] Social History Tobacco Use Types Packs/Day Years [...] on filedocumented in this encounter Care Teams Rubber Chemist Relationship Specialty Start Date End Date Neelam Duran NP [address] [place] [address] PCP - General Nurse Practitioner 03/09/23 documented as of this encounter Additional Source Comments The information contained in this document represents components of the legal health record. It is not the complete legal health record.[facility]
--- OUTSIDE RECORDS SUMMARY | 2025-03-13 18:02 | XMS_ITS | Encounter Summary ---
Author Organization [facility] Address [address] [address] Phone Care Team Providers Care Manual Arts Therapist Name Role Phone Unknown, Unknown Primary Care Provider Neelam Juan NP Primary Care Provider + Encounter Details Date Type Department Care Team (Late st Contact Info) Description 09/07/2018 Procedure Pass [facility] - MRI, [address] [address] Social History Tobacco Use Types Packs/Day Years [...] on filedocumented in this encounter Care Teams Manual Arts Therapist Relationship Specialty Start Date End Date Unknown, Unknown, PCP - General 07/31/18 03/08/23 Neelam Duran, MARLO [address] [place] [address] PCP - General Nurse Practitioner 03/09/23 documented as of this encounter Additional Source Comments The information contained in this document represents components of the legal health record. It is not the complete legal health record.[facility]
--- OUTSIDE RECORDS SUMMARY | 2025-03-13 18:02 | XMS_ITS | Encounter Summary ---
Author Organization [facility] Address 399 [facility] [address] [place] [address] Phone Care Team Providers Care Applications Administrator Name Role Phone Neelam Duran NP Primary Care Provider + Encounter Details Date Type Department Care Team (Late st Contact Info) Description 03/19/2023 Procedure Pass [facility], [facility] 2 [address] [facility], [address] [place] [address] Social History Tobacco Use Types Packs/Day Years [...] on filedocumented in this encounter Care Teams Applications Administrator Relationship Specialty Start Date End Date Neelam Duran NP [address] [place] [address] PCP - General Nurse Practitioner 03/09/23 documented as of this encounter Additional Source Comments The information contained in this document represents components of the legal health record. It is not the complete legal health record.[facility]
--- OUTSIDE RECORDS SUMMARY | 2025-03-13 18:02 | XMS_ITS | Encounter Summary ---
Author Organization [facility] Address 399 [facility] [address] [place] [address] Phone Care Team Providers Care Center Human Resources Manager Name Role Phone Neelam uDran NP Primary Care Provider + Encounter Details Date Type Department Care Team ([facility] st Contact Info) Description 03/09/2023 Ophth Exam [facility] [place] [address] [place] [address] Jarad Jain MD, PhD [address] [place] [address] [email or web address] Social History Tobacco Use Types Packs/Day [...] Author No Risk Indicated 03/11/2023 4:51 PM EDT Violet Figueredo RN * [place] Suicide Severity Rating Scale (Screener/Recent Self-Report) Question Answer Date of Assessment Author 1. Wish to be (Past 1 Month) No 023 4:51 PM EDT Deidra Figueredo RN 2. Non-Specific Active Suici lc Thoughts (Past 1 Month) No 03/11/2023 4:51 PM EDT Imelda Figueredo RN 6. Suicidal Behavior (Lifetime) No 3 4:51 PM EDT Deidra Figueredo RN documented as of this encounter Plan of Treatment Not on file documented as of this encounter Visit Diagnoses Not on filedocumented in this encounter Care Teams Center Human Resources Manager Relationship Specialty Start Date End Date Neelam Duran NP [address] [place] [address] PCP - General Nurse Practitioner 03/09/23 documented as of this encounter Additional Source Comments The information contained in this document represents components of the legal health record. It is not the complete legal health record.[facility]
--- OUTSIDE RECORDS SUMMARY | 2025-03-13 18:02 | XMS_ITS | Encounter Summary ---
Author Organization [facility] Address 399 [facility] [address] [place] [address] Phone Care Team Providers Care Licensed Professional Counselor Name Role Phone Neelam Duran NP Primary Care Provider + Encounter Details Date Type Department Care Team (Late st Contact Info) Description 03/30/2023 Procedure Pass [facility] [place] Imaging - RF/IR [address] [place] [address] Social History Tobacco Use Types Packs/Day Years [...] on filedocumented in this encounter Care Teams Licensed Professional Counselor Relationship Specialty Start Date End Date Neelam Duran NP [address] [place] [address] PCP - General Nurse Practitioner 03/09/23 documented as of this encounter Additional Source Comments The information contained in this document represents components of the legal health record. It is not the complete legal health record.[facility]
--- OUTSIDE RECORDS SUMMARY | 2025-03-13 18:02 | XMS_ITS | Encounter Summary ---
Author Organization [facility] Address 399 [facility] [address] [place] [address] Phone Care Team Providers Care Palliative Care Coordinator Name Role Phone Neelam Duran NP Primary Care Provider + Encounter Details Date Type Department Care Team (Late st Contact Info) Description 08/05/2023 Procedure Pass [facility] - MRI, [facility] [address] [place] [address] Social History Tobacco Use Types Packs/Day Years [...] 08/05/2023 8:[address] Sandoval RN * [place] Suicide Severity Rating Scale (Screener/Recent Self-Report) Question [...] on filedocumented in this encounter Care Teams Palliative Care Coordinator Relationship Specialty Start Date End Date Neelam Duran NP [address] [place] [address] PCP - General Nurse Practitioner 03/09/23 documented as of this encounter Additional Source Comments The information contained in this document represents components of the legal health record. It is not the complete legal health record.[facility]
--- OUTSIDE RECORDS SUMMARY | 2025-03-13 18:02 | XMS_ITS | Encounter Summary ---
Author Organization [facility] Address 399 [facility] [address] [place] [address] Phone Care Team Providers Care Teacher Of The Deaf Name Role Phone Unknown, Unknown Primary Care Provider Neelam Juan NP Primary Care Provider + Encounter Details Date Type Department Care Team (Late st Contact Info) Description 09/07/2018 Procedure Pass [facility] OUTSIDE [address] [place] [address] Social History Tobacco Use Types Packs/Day Years Used Date Smoking Tobacco: Never Assessed Comments Unknown Sex and Gender Information Value Date Recorded Sex Assigned at Not on file Legal Sex Female 9:23 PM EDT Gender Identity Not on file Sexual Orientation Not on file documented as of this encounter Plan of Treatment Not on file documented as of this encounter Visit Diagnoses Not on filedocumented in this encounter Care Teams Teacher Of The Deaf Relationship Specialty Start Date End Date Unknown, Unknown, PCP - General 07/31/18 03/08/23 Neelam Duran NP [address] [place] [address] PCP - General Nurse Practitioner 03/09/23 documented as of this encounter Additional Source Comments The information contained in this document represents components of the legal health record. It is not the complete legal health record.[facility]
[2025-03-13 19:38] VITALS: BP 152/75; PULSE 92; RESP 16; TEMP 36.3; O2SAT 96
--- NOTE | 2025-03-13 19:59 | PC.ADMIT ---
44 y/o female admitted to at 1609 from [facility] for SI and increased anxiety. Per report pt struggles with depression and anxiety, which have increased significantly in the recent years after becoming legally blind. Pt stated she was diagnosed with optic neuritis in one eye back in 2017, and then was diagnosed in the other eye in 2022, leaving her legally blind. Pt struggles with seeing up close, and cannot read paperwork. At home pt ambulates with a walking cane. Pt independent with ADLs, able to ambulate around the unit independently without difficulty, and declined offer for walker while inpatient. Pt endorsed multiple stressors as a result of vision loss, as well as family and relationship stressors. On Tuesday pt reportedly became upset after her daughter canceled a alliance party. Per report pt left her home, became intoxicated, took an excess amount of her prescribed Lorazepam (but was not sure how much), sent suicidal text messages to friend, daughter, and boyfriend, who then found her the next day sleeping on someone?s lawn. Per report pt continued to be upset over the next few days, with angry outbursts and panic attacks. Family reported to [facility] that on 03/12 they found that a recently filled bottle of Lorazepam was empty, questioned if this was a second SA, and decided to call [facility] for help. Pt was then BIBA to [facility] on 03/12 on a section. Pt has therapy and psychiatry services, with this being her first reported IPLOC. Pt has dx PTSD and TERI. Pt tearful throughout the admission process. Pt denied active thoughts to harm herself and stated that her behaviors over the past week were the result of feeling ignored by her loved ones. Pt endorsed high anxiety, nervousness r/t IPLOC, and missing her dog. Pt reported she lives with her boyfriend of 2 years, and described a strained relationship with her 21 year old daughter, who is her only child. UTOX positive for Benzos, and THC. BAL 5. Pt reported she drinks approximately 3-5 glasses of wine per week, and vapes marijuana a couple times per week. Pt denied nicotine use. Pt has shellfish allergy. Skin check remarkable for scattered bruising on arms, legs, and ankles. Initially pt stated she was not sure of the origin of bruising but did recall a recent fall while drinking. Pt signed a CV on arrival, and then signed a 3DN. Pt placed on 15 minute checks.
[2025-03-13] MEDS: buPROPion HCl XL 300 MG TAB.ER.24H PO (21:52)
--- NOTE | 2025-03-13 23:33 | PM.EVENT ---
Event Note Date of Service: 03/13/25 Event Note: Hospitalist consult placed for medical H and P, patient admitted to adult Psychiatry from [facility] due to suicidal statements after being found intoxicated by eoth and ativan, sleeping on someone's lawn. Past medical history significant for optic neuritis, legally blind, PTSD, TERI, marijuana use and alcohol use. Patient reported 3-5 glasses of wine per week to nursing staff. Patient declines hospitalist consult, explained the importance of medical clearance for psychiatric floor. Patient states she has no medical concerns currently, no chest pain, shortness of breath, nausea, vomiting, abdominal pain or urinary symptoms. She does not wish to be re-consulted in the morning, does not feel she needs a medical consult. We will sign off and please reconsult if any medical issues arise. Time Spent With Patient Time: Total time managing care of this patient today ____ minutes.
[2025-03-14] MEDS: buPROPion HCl XL 300 MG TAB.ER.24H PO (08:27)
[2025-03-14 08:30] VITALS: BP 120/85; PULSE 92; RESP 16; TEMP 36.7; O2SAT 94
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
[2025-03-14 09:19] VITALS: BMI 31.9
[2025-03-14 20:00] VITALS: BP 124/80; PULSE 86; RESP 16; TEMP 36.4; O2SAT 98
[2025-03-15] MEDS: buPROPion HCl XL 300 MG TAB.ER.24H PO (08:30)
[2025-03-15 08:39] VITALS: BP 132/67; PULSE 81; RESP 16; TEMP 36.3; O2SAT 99
--- NOTE | 2025-03-15 13:58 | HO.PSYCHPN ---
Subjective Subjective Date of Service: 03/15/25 Reason For Visit: PTSD, TERI Subjective Notes: [facility] Warning and 3 Day Healthcare Proxy: No Guardianship: No Medical Problems Affecting Mental Status: No Interim History: Medical record and nursing notes reviewed; case discussed during rounds with team/nursing staff, and met with patient for supportive therapy/psychoeducation, as well as medication management. Patient observed visible, happy and attended all groups this morning. She requests to leave early that her 3 day notice which will on Tuesday. 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 She reports she will not need to use Ativan anymore. Educate patient on learning coping skills to deal with emotional stress. She was not happy when being told she is not discharged today. Speak with the team and her boyfriend, team has plan to discharge patient early on Tuesday. Patient has been demonstrated safe behavior and denies SI/SIB/HI/AVH. Some mood swings related to feeling worse being here and not able to get discharged today. Continue to minimize her unsafe behavior -OD on Ativan. D/t the fact that patient would not benefit staying longer past this Tuesday, and patient also OP providers she can FLU with upon discharge and has support therapist that she has been working with. Patient would be home safe with support. She also has support from boyfriend. Medication Compliance: Yes Side effects from medications: No Attending Groups: Yes Review of Systems Acute medical concerns: No Medical Review of Systems: unchanged Review of Systems Review of Systems Constitutional: Denies fatigue and Denies fever(s) Cardiovascular: Denies chest pain and Denies dyspnea Respiratory: Denies dyspnea Gastrointestinal: Denies abdominal pain Psychiatric: denies suicidal ideation Endocrine: Denies fatigue Yes all other systems are reviewed and are negative Mental Status Exam Mental Status Exam Narrative: Patient is alert and oriented; behavior is calm, pleasant, and cooperative but x1 very irritable over the fact that she cannot leave today, friendly with mild to moderate anxiety/depression; patient is not in distress; dressed in own casual attire with kempt hair and adequate hygiene; mood is described as good but can be irritable and affect congruent; eye contact appropriate; Speech is normal rate, volume and prosody and not pressured; no psychomotor agitation/retardation present; thought process is organized and goal directed; Thought content is WNL, pertinent to relevant topics and without any delusional content, paranoid ideation or grandiosity; denies any SI/SIB/HI. Denies AH and there is no evidence of perceptual disturbance. Patient's insight and judgment improved . Diagnostics Vital Signs (24Hr): Vital Signs - 24 hr 03/14/25 20:00 03/15/25 08:39 Temperature 97.5 F 97.4 F Pulse Rate 86 81 Respiratory Rate 16 16 Blood Pressure 124/80 132/67 Pulse Oximetry 98 99 Oxygen Delivery Method Room Air Room Air BMI result Body Mass Index 31.9 Medications Medications Current Medications Acetaminophen (Acetaminophen 325 Mg Tablet) 650 mg PO Q6H PRN PRN Reason: Headache/Pain, Scale 1-10 Al Hydroxide/Mg Hydroxide (Magnesium Hydrox/Alum Hydrox 30 Ml Oral.Susp) 30 ml PO Q6H PRN PRN Reason: Heartburn/Nausea Bupropion HCl (Bupropion Hcl Xl 300 Mg Tab.Er.24h) 300 mg PO DAILY ADRIANO Last Admin: 03/15/25 08:30 Dose: 300 mg Hydroxyzine HCl (Hydroxyzine Hcl 25 Mg Tablet) 25 mg PO Q6H PRN PRN Reason: mild anxiety Lorazepam (Lorazepam 0.5 Mg Tablet) 0.5 mg PO DAILY PRN PRN Reason: anxiety attack Magnesium Hydroxide (Milk Of Magnesia 30 Ml Oral.Susp) 30 ml PO DAILY PRN PRN Reason: Constipation Nicotine (Nicotine 21 Mg Patch.Td24) 21 mg TRANSDERMA DAILY PRN PRN Reason: smoking cessation Nicotine Polacrilex (Nicotine Polacrilex 2 Mg Gum) 4 mg BUCCAL Q2H PRN PRN Reason: Nicotine Cravings Olanzapine (Olanzapine 5 Mg Tablet) 5 mg PO TID PRN PRN Reason: agitation Last Admin: 03/13/25 18:45 Dose: 5 mg Sertraline HCl (Sertraline Hcl 100 Mg Tablet) 200 mg PO BEDTIME ADRIANO Last Admin: 03/14/25 20:29 Dose: 200 mg Trazodone HCl (Trazodone Hcl 50 Mg Tablet) 50 mg PO BEDTIME MRX1 PRN PRN Reason: Insomnia Allergies Allergies Allergy/AdvReac Type Severity Reaction Status Date / Time fish derived (fish) Allergy Difficulty Verified 03/15/25 13:07 Swallowing shellfish derived (shellfish) Allergy Unknown Verified 03/13/25 16:43 Assessment & Plan Assessment & Plan (1) Depression with anxiety: Status: Acute Code(s): F41.8 - Other specified anxiety disorders (2) Intentional lorazepam overdose: Status: Acute Code(s): T42.4X2A - Poisoning by benzodiazepines, intentional self-harm, initial encounter (3) PTSD (post-traumatic stress disorder): Status: Acute Code(s): F43.10 - Post-traumatic stress disorder, unspecified Plan HPI: patient is a 44 years old single female with past medical history of depression and anxiety, history of decreased vision descending for suicidal ideations and attempt Patient overdose on lorazepam which was unclear how many pills she took the having issues regarding the birthday for her daughter: Patient have the alliance party for her daughter but her daughter canceled the alliance party with all of the adult that were coming and only had her friends come. Patient has been having recent panic attacks related to her increasing legal blindness. She has angry outbursts. She ran away from home recently. Patient has been taking extra doses of medication in an effort to kill herself in additional to have a drink containing alcohol. She reported that I just want to hurt my daughter due to feeling so hurt . My daughter is awful to me Formulation/clinical reasoning: Increased stress, complicated pharmcy dynamic with her mom and her dauther, increased panic attacks, Increased medical condition that affect mental health- Increase vision issues. 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 Given hx of anxiety and depression with PTSD, patient would be benefit in restrictive environment for her own safety, medication adjustment, and collateral with outpatient providers regarding Ativan overdose Hospital course: 03/14/25: Continue with home meds. Wellbutrin 300mg daily for depression Zoloft 200mg daily at HS. Ativan 0.5mg PRN daily for anxiety/panic attack. Zyprexa 5mg BID PRN for agitation. Hydroxyzine 25 and Trazone PRN for anxiety/depression. Plan Patient on 15 minute checks for safety. Admitted to . CV. Work with treatment team to do collateral. Patient seen by Hospitalist on 03/14/25 for H&P Patient educated on: medication risk/benefits, substance abuse and therapeutic strategies Informed Consent: understands Reason for continued inpatient stay Substantial Risk for: med/psych decompensation Time Spent With Patient Time: Total time managing care of this patient today ____ minutes.
--- NOTE | 2025-03-15 14:17 | P.PNPSI_ITS ---
Subjective Subjective Reason For Visit: PTSD, TERI Diagnostics Vital Signs (24Hr): Vital Signs - 24 hr 03/14/25 20:00 03/15/25 08:39 Temperature 97.5 F 97.4 F Pulse Rate 86 81 Respiratory Rate 16 16 Blood Pressure 124/80 132/67 Pulse Oximetry 98 99 Oxygen Delivery Method Room Air Room Air BMI result Body Mass Index 31.9 Medications Medications Current Medications Acetaminophen (Acetaminophen 325 Mg Tablet) 650 mg PO Q6H PRN PRN Reason: Headache/Pain, Scale 1-10 Al Hydroxide/Mg Hydroxide (Magnesium Hydrox/Alum Hydrox 30 Ml Oral.Susp) 30 ml PO Q6H PRN PRN Reason: Heartburn/Nausea Bupropion HCl (Bupropion Hcl Xl 300 Mg Tab.Er.24h) 300 mg PO DAILY [facility] Last Admin: 03/15/25 08:30 Dose: 300 mg Hydroxyzine HCl (Hydroxyzine Hcl 25 Mg Tablet) 25 mg PO Q6H PRN PRN Reason: mild anxiety Lorazepam (Lorazepam 0.5 Mg Tablet) 0.5 mg PO DAILY PRN PRN Reason: anxiety attack Magnesium Hydroxide (Milk Of Magnesia 30 Ml Oral.Susp) 30 ml PO DAILY PRN PRN Reason: Constipation Nicotine (Nicotine 21 Mg Patch.Td24) 21 mg TRANSDERMA DAILY PRN PRN Reason: smoking cessation Nicotine Polacrilex (Nicotine Polacrilex 2 Mg Gum) 4 mg BUCCAL Q2H PRN PRN Reason: Nicotine Cravings Olanzapine (Olanzapine 5 Mg Tablet) 5 mg PO TID PRN PRN Reason: agitation Last Admin: 03/13/25 18:45 Dose: 5 mg Sertraline HCl (Sertraline Hcl 100 Mg Tablet) 200 mg PO BEDTIME [facility] Last Admin: 03/14/25 20:29 Dose: 200 mg Trazodone HCl (Trazodone Hcl 50 Mg Tablet) 50 mg PO BEDTIME MRX1 PRN PRN Reason: Insomnia Allergies Allergies Allergy/AdvReac Type Severity Reaction Status Date / Time fish derived (fish) Allergy Difficulty Verified 03/15/25 13:07 Swallowing shellfish derived (shellfish) Allergy Unknown Verified 03/13/25 16:43 Assessment & Plan Assessment & Plan (1) Depression with anxiety: Status: Acute Code(s): F41.8 - Other specified anxiety disorders (2) Intentional lorazepam overdose: Status: Acute Code(s): T42.4X2A - Poisoning by benzodiazepines, intentional self-harm, initial encounter (3) PTSD (post-traumatic stress disorder): Status: Acute Code(s): F43.10 - Post-traumatic stress disorder, unspecified Plan HPI: patient is a 44 years old single female with past medical history of depression and anxiety, history of decreased vision descending for suicidal ideations and attempt Patient overdose on lorazepam which was unclear how many pills she took the having issues regarding the birthday for her daughter: [place] have the constitution party for her daughter but her daughter canceled the constitution party with all of the adult that were coming and only had her friends come. Patient has been having recent panic attacks related to her increasing legal blindness. She has angry outbursts. She ran away from home recently. Patient has been taking extra doses of medication in an effort to kill herself in additional to have a drink containing alcohol. She reported that I just want to hurt my daughter due to feeling so hurt . My daughter is awful to me Formulation/clinical reasoning: Increased stress, complicated pharmcy dynamic with her mom and her dauther, increased panic attacks, Increased medical condition that affect mental health- Increase vision issues. 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 Given hx of anxiety and depression with PTSD, patient would be benefit in restrictive environment for her own safety, medication adjustment, and collateral with outpatient providers regard ing Ativan overdose Hospital course: 03/14/25: Continue with home meds. Wellbutrin 300mg daily for depression Zoloft 200mg daily at HS. Ativan 0.5mg PRN daily for anxiety/panic attack. Zyprexa 5mg BID PRN for agitation. Hydroxyzine 25 and Trazone PRN for anxiety/depression. Plan Patient on 15 minute checks for safety. Admitted to . CV. Work with treatment team to do collateral. Patient seen by Hospitalist on 03/14/25 for H&P Time Spent With Patient Time: Total time managing care of this patient today ____ minutes.
[2025-03-15 19:59] VITALS: BP 123/82; PULSE 96; RESP 15; TEMP 36.3; O2SAT 97
--- NOTE | 2025-03-16 07:41 | HO.PSYCHPN ---
Subjective Subjective Date of Service: 03/16/25 Reason For Visit: PTSD, TERI Subjective Notes: 3 Day Interim History: 44yo wants to get off ativan she rosetta on- regrets having rosetta- very thankful it didn't work - REalizes stopping ativan here on unit not best place, given stresses here- feels she will go home to less stress describes how this experience gave her and her partner different perspective REviewed with pt risk of sudden cessation of benzo- but pt says was not using daily- and was not drinking daily though still was drinking more than she or bf needed to - so that is going to change for them- Being dced tomorrow by weekday provider denies si/hi/psychosis Medication Compliance: Yes Side effects from medications: No Attending Groups: Yes Review of Systems Acute medical concerns: No Medical Review of Systems: unchanged Mental Status Exam Mental Status Exam Patient Appearance: Appropriate Patient Orientation: Person, Place, Time and Situation Level of Consciousness: Awake Patient Behavior: Appropriate, Cooperative and Good Eye Contact Mood Description: Calm Affect Description: Appropriate Patient Cognition Impaired: No Ability to Follow Directions: Good Speech Pattern: Clear Hallucinations: None Delusions: Not Present Thought Process: Intact and Goal Oriented Thought Content: positive for Intact Judgement: Fair Diagnostics Vital Signs (24Hr): Vital Signs - 24 hr 03/15/25 08:39 03/15/25 19:59 Temperature 97.4 F 97.3 F Pulse Rate 81 96 Respiratory Rate 16 15 Blood Pressure 132/67 123/82 Pulse Oximetry 99 97 Oxygen Delivery Method Room Air BMI result Body Mass Index 31.9 Medications Medications Current Medications Acetaminophen (Acetaminophen 325 Mg Tablet) 650 mg PO Q6H PRN PRN Reason: Headache/Pain, Scale 1-10 Al Hydroxide/Mg Hydroxide (Magnesium Hydrox/Alum Hydrox 30 Ml Oral.Susp) 30 ml PO Q6H PRN PRN Reason: Heartburn/Nausea Bupropion HCl (Bupropion Hcl Xl 300 Mg Tab.Er.24h) 300 mg PO DAILY [facility] Last Admin: 03/15/25 08:30 Dose: 300 mg Hydroxyzine HCl (Hydroxyzine Hcl 25 Mg Tablet) 25 mg PO Q6H PRN PRN Reason: mild anxiety Lorazepam (Lorazepam 0.5 Mg Tablet) 0.5 mg PO DAILY PRN PRN Reason: anxiety attack Magnesium Hydroxide (Milk Of Magnesia 30 Ml Oral.Susp) 30 ml PO DAILY PRN PRN Reason: Constipation Melatonin (Melatonin 3 Mg Tablet) 6 mg PO BEDTIME ADRIANO Last Admin: 03/15/25 23:37 Dose: 6 mg Nicotine (Nicotine 21 Mg Patch.Td24) 21 mg TRANSDERMA DAILY PRN PRN Reason: smoking cessation Nicotine Polacrilex (Nicotine Polacrilex 2 Mg Gum) 4 mg BUCCAL Q2H PRN PRN Reason: Nicotine Cravings Olanzapine (Olanzapine 5 Mg Tablet) 5 mg PO TID PRN PRN Reason: agitation Last Admin: 03/13/25 18:45 Dose: 5 mg Sertraline HCl (Sertraline Hcl 100 Mg Tablet) 200 mg PO BEDTIME ADRIANO Last Admin: 03/15/25 20:50 Dose: 200 mg Trazodone HCl (Trazodone Hcl 50 Mg Tablet) 50 mg PO BEDTIME MRX1 PRN PRN Reason: Insomnia Allergies Allergies Allergy/AdvReac Type Severity Reaction Status Date / Time fish derived (fish) Allergy Difficulty Verified 03/15/25 13:07 Swallowing shellfish derived (shellfish) Allergy Unknown Verified 03/13/25 16:43 Assessment & Plan Assessment & Plan (1) Depression with anxiety: Status: Acute Code(s): F41.8 - Other specified anxiety disorders (2) Intentional lorazepam overdose: Status: Acute Code(s): T42.4X2A - Poisoning by benzodiazepines, intentional self-harm, initial encounter (3) PTSD (post-traumatic stress disorder): Status: Acute Code(s): F43.10 - Post-traumatic stress disorder, unspecified Plan Pt on 3 day being dced tomorrow day before 3 day expires- Pt future oriented Patient educated on: medication risk/benefits Informed Consent: understands Reason for continued inpatient stay Substantial Risk for: stable for discharge Time Spent With Patient Time: Total time managing care of this patient today ____ minutes.
[2025-03-16 07:55] VITALS: BP 127/63; PULSE 84; RESP 14; TEMP 36.3; O2SAT 98
[2025-03-16] MEDS: buPROPion HCl XL 300 MG TAB.ER.24H PO (08:59)
[2025-03-16 19:51] VITALS: BP 115/66; PULSE 87; RESP 15; TEMP 37; O2SAT 98
[2025-03-17] MEDS: buPROPion HCl XL 300 MG TAB.ER.24H PO (07:46)
--- NOTE | 2025-03-17 14:09 | P.DS_ITS ---
DS: Providers Provider Date of Service: 03/17/25 Date of admission: 03/13/25 16:01 Date of discharge: 03/17/25 Primary care physician: Unknown Physician Attending physician on admission: Marilyn Rice Consults: 03/13/25 16:45 Consult to Hospitalist Routine Comment: Consulting Provider: [facility] Hospitalists Reason For Exam: admission physical Discharging clinician: Marilyn Rice DS: Diagnosis Discharge Diagnosis (1) Depression with anxiety: Status: Acute (2) Intentional lorazepam overdose: Status: Acute (3) PTSD (post-traumatic stress disorder): Status: Acute DS: Medications Discharge Medications Home Medications: Home Medications ?Medication ?Instructions ?Recorded ?Confirmed bupropion HCl 300 mg 24 hr tablet, 300 mg PO QAM 03/1303/13/25 extended release sertraline 100 mg tablet 200 mg PO DAILY 03/13/25 Mental Status Exam Mental Status Exam Narrative: Patient presents well-groomed, casually dressed. Affect is euthymic with full range. Speech is clear and coherent. Thought process is linear and logical. Thought content is appropriate and relevant. Patient denies suicidal or homicidal ideation intent or plan. No overt psychotic symptoms elicited. Insight is good. Judgment is good. DS: Summary Hospital Course Hospital Course: HPI: patient is a 44 years old single female with past medical history of depression and anxiety, history of decreased vision descending for suicidal ideations and attempt Patient overdose on lorazepam which was unclear how many pills she took the having issues regarding the birthday for her daughter: Patient have the alliance party for her daughter but her daughter canceled the alliance party with all of the adult that were coming and only had her friends come. Patient has been having recent panic attacks related to her increasing legal blindness. She has angry outbursts. She ran away from home recently. Patient has been taking extra doses of medication in an effort to kill herself in additional to have a drink containing alcohol. She reported that I just want to hurt my daughter due to feeling so hurt . My daughter is awful to me Formulation/clinical reasoning: Increased stress, complicated pharmcy dynamic w ith her mom and her dauther, increased panic attacks, Increased medical condition that affect mental health- Increase vision issues. 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 Given hx of anxiety and depression with PTSD, patient would be benefit in restrictive environment for her own safety, medication adjustment, and collateral with outpatient providers regarding Ativan overdose Hospital course: 03/14/25: Continue with home meds. Wellbutrin 300mg daily for depression Zoloft 200mg daily at HS. Ativan 0.5mg PRN daily for anxiety/panic attack. Zyprexa 5mg BID PRN for agitation. Hydroxyzine 25 and Trazone PRN for anxiety/depression. 03/15/25: 03/15/25: Patient observed visible, happy and attended all groups this morning. She requests to leave early that her 3 day notice which will on Tuesday. 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 She reports she will not need to use Ativan anymore. Educate patient on learning coping skills to deal with emotional stress. She was not happy when being told she is not discharged today. Speak with the team and her boyfriend, team has plan to discharge patient early on Tuesday. Patient has been demonstrated safe behavior and denies SI/SIB/HI/AVH. Some mood swings related to feeling worse being here and not able to get discharged today. Continue to minimize her unsafe behavior -OD on Ativan. D/t the fact that patient would not benefit staying longer past this Tuesday, and patient also OP providers she can FLU with upon discharge and has support therapist that she has been working with. Patient would be home safe with support. She also has support from boyfriend. No med changes. Continue with current plan. Will work on sending meds to preferred pharmacy. Patient to continue with home meds. Discontinue Ativan. will need to FLU with OP provider and therapist for continuing of care. Tentative to discharge early on Tuesday back to home. Boyfriend probably will pick patient up. 03/16/25: per rounding weekend provider note: Patient wants to get off ativan she rosetta on- regrets having rosetta- very thankful it didn't work - Realized stopping ativan here on unit not best place, given stresses here- feels she will go home to less stress describes how this experience gave her and her partner different perspective Reviewed with pt risk of sudden cessation of benzo- but pt says was not using daily- and was not drinking daily though still was drinking more than she or bf needed to - so that is going to change for them- Being dced tomorrow by weekday provider. 03/17/25: per discharge nurse report, patient asked to have Hydroxyzine prescribed but was informed that it will risky prescribed medication to patient who is not under observation after discharged to a new medication which we would not have opportunity to observe and monitor for any side effects. Also, patient signed 3 day-notice with intent to leave early, refused recommended treatment, and demanded to discharge early. Patient could FLU with OP provider to further medication needed for anxiety as she agreed to when we discussed on Tuesday03/15/25. Time spent discussing smoking cessation with patient: 3 to 10 minutes Status at Discharge Cognitive/behavioral status at discharge: CONDITION ON DISCHARGE: CURRENT STATUS IT RELATES TO ADMISSION CRITERIA: Stable, improved. Improvements in depression, anxiety, and suicidal ideation. Improvements in sleep, energy, and appetite. and no hallucination or paranoia/delusional thought. Functional status at discharge: independent ambulation Overall status at discharge: patient is back to baseline Time Spent with Patient Time attestation: Total time managing care of this patient today ____ minutes. Time spent: Greater than 30 minutes Discharge Plan Discharge Anticipated Discharge Date/Time: 03/17/25 09:00 Patient Disposition: Home, Self-Care Discharge Diagnosis: Depression and anxiety, PTSD [facility]Other[facility] - 03/27/25 10:45 am Referral Note: Follow-up appointment with medication providerRamiro (telehealth appointment) [facility] [Other] - 03/21/25 10:00 am Referral Note: Follow up appointment with [facility] (Telehealth appointment) Physician,Krishna Rader [Primary Care Provider, Medical] - 1 Week Discharge Medications: Continued bupropion HCl 300 mg tablet extended release 24 hr 300 mg PO QAM sertraline 100 mg tablet 200 mg PO DAILY Discontinued lorazepam 0.5 mg tablet 0.5 mg PO DAILY PRN (Reason: anxiety attack) sumatriptan succinate 25 mg tablet 25 mg PO ONCE Discharge Orders: Discharge Order (Routine); Ordered 03/17/25 Ordered By: Marilyn Rice Diet: Regular diet Activity on Discharge: No Restrictions Stand Alone Forms: Patient Portal Discharge page, Community Support Print Language: Lao Care Plan Goals: Maintain mood and safe behaviors Take medications as prescribed Continue to pursue sobriety Practice coping skills Continue with outpatient providers and reach out to them as needed Health Concerns: Mood stability and behaviors Sobriety Plan of Treatment: Follow up with your PCP, psychiatric provider and other outpatient providers regarding above concerns Take medications as prescribed Assessment: Assessment: Risk assessment at time of discharge: Patient was interviewed prior to discharge and found to be fully oriented and without any SI or HI. Patient has improved insight and judgment and wants to continue treatment. Patient is not in imminent risk of harm to self or others and has a safety plan that includes presenting to the closest ER or calling 911 if feeling unsafe. Patient has been observed closely by nursing and unit staff throughout admission; patient has not engaged in any behaviors that suggest dangerousness to self or others and has demonstrated appropriate behaviors and impulse control Discharge Date/Time: 03/17/25 08:50
== END 2025-03-17 08:50 | disposition home or self-care (01) | DRG 756 ==
PROVIDERS: Admitting Provider Psychiatry & Neurology Psychiatry; Visit Provider Psychiatry & Neurology Psychiatry
DX: F41.9 Anxiety disorder, unspecified (principal); R45.851 Suicidal ideations; F32.A Depression, unspecified; H54.8 Legal blindness, as defined in USA; F43.10 Post-traumatic stress disorder, unspecified; Z91.51 Personal history of suicidal behavior; Z79.899 Other long term (current) drug therapy

== ENCOUNTER → 2025-03-13 16:01 | Outpatient (BNV) | payer OTHER, SELFPAY | PROVIDERS: Admitting Provider Psychiatry & Neurology Psychiatry; Visit Provider Nurse Practitioner Psychiatric/Mental Health | DX: F41.8 Other specified anxiety disorders (principal); T42.4X2A Poisoning by benzodiazepines, intentional self-harm, initial encounter; F43.10 Post-traumatic stress disorder, unspecified | CPT/HCPCS: 99231 ==